=== PATIENT | male | born 1990 | race Caucasian/White ===

== ENCOUNTER 2017-11-26 22:37 | Emergency (ER) | payer OTHER, BC ==
[2017-11-26 22:45] VITALS: BP 132/64; PULSE 73; RESP 16; TEMP 98; O2SAT 100
--- NOTE | 2017-11-26 23:05 | ED PDOC ---
Upper Extremity Pain/Injury Time Seen by Provider: 11/26/17 22:41 Chief Complaint (Nursing): Upper Extremity Problem/Injury Chief Complaint (Provider): Left shoulder Past Medical History Vital Signs: Last Vital Signs Temp 98.0 F 11/26/17 22:43 Pulse 73 11/26/17 22:43 Resp 16 11/26/17 22:43 BP 132/64 11/26/17 22:43 Pulse Ox 100 11/26/17 22:43 - Home Medications Home Medications: Ambulatory Orders Medication Instructions Recorded Ibuprofen [Motrin] 600 mg PO Q6 #20 tab 01/01/16 Metoclopramide [Reglan] 10 mg PO Q4 PRN #0 dose 01/01/16 - Allergies Allergies/Adverse Reactions: Allergies Allergy/AdvReac Type Severity Reaction Status Date / Time No Known Allergies Allergy Verified 11/26/17 22:43 - ECG O2 Sat by Pulse Oximetry: 100 Disposition - Clinical Impression Clinical Impression: Injury of left shoulder - Patient ED Disposition Is Patient to be Admitted: No Counseled Patient/Family Regarding: Diagnosis, Need For Followup - Disposition Disposition: Routine/Home Disposition Time: 23:04 Condition: GOOD Instructions: Shoulder Pain (ED) Forms: [facility] ([place]), [facility] ED School/Work Excuse
--- NOTE | 2017-11-27 10:01 | RAD ---
PROCEDURE: Radiographs of the Left Shoulder HISTORY: LEft shoulder pain, hyperextended COMPARISON: No prior. FINDINGS: BONES: Normal. No fracture. JOINTS: Normal. Glenohumeral and acromioclavicular joints preserved. No osteoarthritis. SOFT TISSUES: Normal. OTHER FINDINGS: None. IMPRESSION: Normal radiographs of the left shoulder.
== END 2017-11-26 23:21 | disposition home or self-care (01) ==
LOC: H.ER 22:37
DX: S49.92XA Unspecified injury of left shoulder and upper arm, initial encounter (principal); X50.9XXA Other and unspecified overexertion or strenuous movements or postures, initial encounter; Y35.811A Legal intervention involving manhandling, law enforcement official injured, initial encounter